=== PATIENT | female | born 1940 | race Caucasian/White ===

== ENCOUNTER 2021-02-26 09:23 | Outpatient (CLI) | payer MEDICARE, SELFPAY ==
--- NOTE | 2021-02-26 09:32 | CDU_ITS ---
Reason For Study: Homonymous bilateral field defects, right side Rt. Velocities/BP Lt. Velocities/BP Prox CCA 78.6/14.7 cm/sec. Prox CCA 98.1/17.9 cm/sec. Mid CCA 74.7/16 cm/sec. Mid CCA 90.4/17.9 cm/sec. Dist CCA 76/17.3 cm/sec. Dist CCA 84.9/16.8 cm/sec. Prox ICA 60.4/12.1 cm/sec. Prox ICA 64/16.8 cm/sec. Mid ICA 87.8/23.9 cm/sec. Mid ICA 92.6/26.7 cm/sec. Dist ICA 106/29.1 cm/sec. Dist ICA 112.1/33.5 cm/sec. Rt. ICA/CCA = 1.39. Lt. ICA/CCA = 1.24. Prox ECA 77.3/5.6 cm/sec. Prox ECA 70.6/5.8 cm/sec. Rt. Vert. 52/12.4 cm/sec. Lt. Vert. 56.9/13.9 cm/sec. Right Extracranial There is intimal thickening but no significant atherosclerotic plaque noted in the right common carotid artery. There is intimal thickening but no significant atherosclerotic plaque noted in the right internal carotid artery. There is intimal thickening but no significant atherosclerotic plaque noted in the right external carotid artery. Antegrade flow is noted in the right vertebral artery. Left Extracranial There is homogeneous, smooth atherosclerotic plaque noted in the left common carotid artery. There is heterogeneous, smooth atherosclerotic plaque noted in the left internal carotid artery. There is intimal thickening but no significant atherosclerotic plaque noted in the left external carotid artery. Antegrade flow is noted in the left vertebral artery. Procedure Carotid Duplex [id number]. This is a Carotid Duplex examination using B-mode, color flow and specral Doppler. Exam performed in department. VL/Carotid Duplex Ultrasound Interpretation Summary No significant atherosclerotic plaque or stenosis noted in the right internal c arotid artery. Mild (<50%) stenosis left extracranial internal carotid. Flow within the vertebral a rteries is antegrade bilaterally. Ordering Physician: Dustin Crooks Referring Physician: Ashok Kim Performed By: Tavia Platt RVT
--- NOTE | 2021-02-26 10:06 | MRI_ITS ---
STUDY: MRI BRAIN WITHOUT CONTRAST REASON FOR EXAM: Female, 80 years old. SUBJECTIVE VISUAL DISTURBANCE;RIGHT HOMONYMOUS DEFECT TECHNIQUE: Standardized multiplanar fat and water weighted pulse sequences were obtained. COMPARISON: None. FINDINGS: Normal size of the ventricles and extra-axial spaces for the patient''s age. There are a limited number of small white matter hyperintensities, distributed throughout the deep white matter tracts of the cerebral hemispheres, consistent with mild chronic white matter ischemic changes. Normal bilateral basal ganglia. Normal thalami. There is no extra-axial fluid accumulation. Normal sella turcica, pituitary gland, infundibular stalk, optic chiasm and hypothalamus. Normal tectal plate and pineal gland. Normal midbrain, casey and medulla. Normal cerebellum. Normal basal cisterns. MRI/Brain without Contrast IMPRESSION: No acute intracranial abnormality. Electronically Signed: Sully Mosley MD at 10:53 EST Tel , Service support ,
== END 2021-02-26 23:59 | disposition short-term general hospital (02) ==
PROVIDERS: PCP Preventive Medicine Occupational Medicine; Referring Provider Ophthalmology; Visit Provider Ophthalmology
DX: H53.461 Homonymous bilateral field defects, right side (principal); H53.10 Unspecified subjective visual disturbances
CPT/HCPCS: 70551; 93880